=== PATIENT | female | born 1985 | race Caucasian/White ===

== ENCOUNTER → 2017-10-06 11:13 | Emergency (ER) | payer BC ==
[2017-10-06 13:00] VITALS: BP 119/61
--- NOTE | 2017-10-06 13:21 | UC ---
Skin Complaint HPI - HPI Summary HPI Summary: pt is c/o a 3 week hx of rash. states on arms, legs and trunk. notes very itchy and worse at night. denies any current or recent illness. states has had mild rash in past but nothing like this. denies any new exposures. no one else in home with this. applying otc steroid cream with no relief. - History of Current Complaint Time Seen by Provider: 10/06/17 12:58 Stated Complaint: SKIN COMPLAINT Hx Obtained From: Patient Hx Last Menstrual Period: pt on depo and states not getting a menses Onset/Duration: Gradual Onset Pain Intensity: 0 Aggravating Factor(s): Nothing Alleviating Factor(s): Nothing Associated Signs & Symptoms: Positive: Rash - Allergy/Home Medications Allergies/Adverse Reactions: Allergies Allergy/AdvReac Type Severity Reaction Status Date / Time hydrocodone [From Vicodin] Allergy Itching Verified 10/06/17 13:01 acetaminophen [From Vicodin] AdvReac GI Upset Verified 10/06/17 13:01 Home Medications: Home Medications Loratadine [Claritin 10 MG CAP] 10 mg PO DAILY 10/06/17 [History Confirmed 10/06] Pseudoephedrine TAB* [Sudafed TAB*] 30 mg PO Q6H PRN 10/06/17 [History Confirmed 10/06/17] Review of Systems Constitutional: Negative Skin: Rash Eyes: Negative ENT: Negative Respiratory: Negative Cardiovascular: Negative Gastrointestinal: Negative Genitourinary: Negative Motor: Negative Neurovascular: Negative Musculoskeletal: Negative Neurological: Negative Psychological: Negative Is Patient Immunocompromised?: No All Other Systems Reviewed And Are Negative: Yes PMH/Surg Hx/FS Hx/Imm Hx Previously Healthy: Yes - Surgical History Surgical History: Yes Surgery Procedure, Year, and Place: C SECTION X 1 - Social History Occupation: Employed Full-time Lives: With Family Alcohol Use: Rare Substance Use Type: None Smoking Status (MU): Never Smoked Tobacco Have You Smoked in the Last Year: No Household Exposure Type: Cigarettes - Immunization History Most Recent Influenza Vaccination: none Vaccination Up to Date: Yes Physical Exam Triage Information Reviewed: Yes Appearance: Well-Appearing Vital Signs: Initial Vital Signs Temp 98.8 F 10/06/17 12:53 Pulse 87 10/06/17 12:53 Resp 16 10/06/17 12:53 BP 119/61 10/06/17 12:53 Pulse Ox 99 10/06/17 12:53 Vital Signs Reviewed: Yes Eyes: Positive: Conjunctiva Clear ENT: Positive: Normal ENT inspection Neck: Positive: Supple, Nontender, No Lymphadenopathy Respiratory: Positive: Lungs clear, Normal breath sounds Cardiovascular: Positive: RRR, No Murmur Abdomen Description: Positive: Nontender, No Organomegaly, Soft Bowel Sounds: Positive: Present Musculoskeletal: Positive: ROM Intact Neurological: Positive: Alert Psychological: Positive: Age Appropriate Behavior Skin Exam: Other - papular red spots on arms/hands, upper thighs/groin area, under breasts. mostly excoriated. not scaley, petechial and no burrows. Course/Dx - Course Course Of Treatment: doubt contact dermatitis or viral but pt added hx of on feet and sore 2 days ago but nothing on palms, soles or mouth now thus hand foot mouth indifferential. distribution and itch raises concern for scabies even though family with no rash thus will cover for that. pt advised to d/c topical steroid. will add po steroid and give dermatology f/u. - Diagnoses Provider Diagnoses: acute rash. possible scabies Discharge - Sign-Out/Discharge Documenting (check all that apply): Discharge - Discharge Plan Condition: Stable Disposition: HOME Prescriptions: Permethrin [Elimite] 60 gm TP ONCE #1 cream..g. predniSONE TAB* [Deltasone TAB*] 40 mg PO DAILY #10 tab Patient Education Materials: Scabies (ED), Acute Rash (ED) Forms: *Work Release Referrals: Steven Hewitt MD [Medical Doctor] - 7 Days - Billing Disposition and Condition Condition: STABLE Disposition: HOME
== END | disposition home or self-care (01) ==
LOC: UCCORT 11:13
DX: R21 Rash and other nonspecific skin eruption (principal); Z88.6 Allergy status to analgesic agent; Z88.5 Allergy status to narcotic agent
CPT/HCPCS: 99212; G0463